=== PATIENT | female | born 1980 | race Caucasian/White ===

== ENCOUNTER → 2023-07-09 12:05 | Outpatient (REF) | payer OTHER, SELFPAY | LOC: WDC 12:05 | PROVIDERS: ATTENDING PHYSICIAN Nurse Practitioner Adult Health | DX: Z12.31 Encounter for screening mammogram for malignant neoplasm of breast (principal) | CPT/HCPCS: 77063; 77067 ==

== ENCOUNTER → 2023-12-24 06:17 | Day surgery (SDC) | payer OTHER, SELFPAY | LOC: GI 06:17 | PROVIDERS: ATTENDING PHYSICIAN Internal Medicine Gastroenterology | DX: Z12.11 Encounter for screening for malignant neoplasm of colon (principal); K64.8 Other hemorrhoids; K57.30 Diverticulosis of large intestine without perforation or abscess without bleeding; Z83.719 Family history of colon polyps, unspecified | CPT/HCPCS: G0105 ==

== ENCOUNTER → 2024-07-09 12:59 | Outpatient (REF) | payer OTHER, SELFPAY | LOC: WDC 12:59 | PROVIDERS: ATTENDING PHYSICIAN Nurse Practitioner Adult Health | DX: Z12.31 Encounter for screening mammogram for malignant neoplasm of breast (principal) | CPT/HCPCS: 77063; 77067 ==

== ENCOUNTER → 2024-07-22 08:47 | Outpatient (REF) | payer OTHER, SELFPAY | LOC: RAD 08:47 | PROVIDERS: ATTENDING PHYSICIAN Registered Nurse | DX: R10.12 Left upper quadrant pain (principal) | CPT/HCPCS: 76700 ==

== ENCOUNTER → 2024-08-12 10:18 | Outpatient (REF) | payer OTHER, SELFPAY | LOC: RAD 10:18 | PROVIDERS: ATTENDING PHYSICIAN Nurse Practitioner Adult Health | DX: R07.81 Pleurodynia (principal) | CPT/HCPCS: 71101; 72072 ==

== ENCOUNTER → 2024-11-17 17:31 | Outpatient (REF) | payer OTHER, SELFPAY | LOC: MRI 3T 17:31 | PROVIDERS: ATTENDING PHYSICIAN Nurse Practitioner Adult Health | DX: R07.81 Pleurodynia (principal) | CPT/HCPCS: 71552; A9575 ==